=== PATIENT | male | born 1995 | race Caucasian/White ===

== ENCOUNTER 2020-06-25 13:29 | Emergency (ER) | payer OTHER ==
--- NOTE | 2020-06-25 15:09 | ED ---
Psych HPI - General Source: patient Mode of arrival: ambulatory - History of Present Illness MD Complaint: suicidal ideation, feels depressed <Jorge Pearl - Last Filed: 06/25/20 20:22> <Tez Talamantes - Last Filed: 06/26/20 02:35> - General Chief Complaint: Psychiatric Symptoms Stated Complaint: mental health Time Seen by Provider: 06/25/20 13:53 - History of Present Illness Initial Comments: 24 -year-old male history depression and complains of feeling depressed suicidal he did cut his left forearm several times will last couple days he has sausage shooting himself. He states he depressed because of job loss he has been using methamphetamine and other substances. No prior admission at this facility. No other complaints or modifying factors (Jorge Pearl) - Related Data Home Medications Medication Instructions Recorded Confirmed No Known Home Medications 06/25/20 06/25/20 Allergies Allergy/AdvReac Type Severity Reaction Status Date / Time No Known Allergies Allergy Verified 06/25/20 15:07 Review of Systems ROS Other: All systems not noted in ROS Statement are negative. <Jorge Pearl - Last Filed: 06/25/20 20:22> ROS Other: All systems not noted in ROS Statement are negative. <Tez Talamantes - Last Filed: 06/26/20 02:35> ROS Statement: Those systems with pertinent positive or pertinent negative responses have been documented in the HPI. Past Medical History Past Medical History: No Reported History History of Any Multi-Drug Resistant Organisms: None Reported Past Surgical History: Orthopedic Surgery Past Psychological History: Anxiety Smoking Status: Current every day smoker Past Alcohol Use History: Occasional Past Drug Use History: Marijuana, Methamphetamine <Jorge Pearl - Last Filed: 06/25/20 20:22> General Exam Limitations: no limitations General appearance: alert, anxious Head exam: Present: atraumatic, normocephalic, normal inspection Eye exam: Present: normal appearance, PERRL, EOMI. Absent: scleral icterus, conjunctival injection, periorbital swelling ENT exam: Present: normal exam, mucous membranes moist Neck exam: Present: normal inspection. Absent: tenderness, meningismus, lymphadenopathy Respiratory exam: Present: normal lung sounds bilaterally. Absent: respiratory distress, wheezes, rales, rhonchi, stridor Cardiovascular Exam: Present: regular rate, normal rhythm, normal heart sounds. Absent: systolic murmur, diastolic murmur, rubs, gallop, clicks GI/Abdominal exam: Present: soft, normal bowel sounds. Absent: distended, tenderness, guarding, rebound, rigid Extremities exam: Present: full ROM, normal capillary refill, other (Multiple superficial transverse abrasions over the volar left forearm no active bleeding no suture repair indicated no foreign body seen.). Absent: tenderness, pedal edema, joint swelling, calf tenderness Back exam: Present: normal inspection Neurological exam: Present: alert, oriented X3, CN II-XII intact Psychiatric exam: Present: normal affect, normal mood Skin exam: Present: warm, dry, intact, normal color. Absent: rash <Jorge Pearl - Last Filed: 06/25/20 20:22> - General Exam Comments Initial Comments: Is a well-developed nourished awake alert oriented 3 male (Jorge Pearl) Course <Jorge Pearl - Last Filed: 06/25/20 20:22> <Tez Talamantes - Last Filed: 06/26/20 02:35> Vital Signs 06/25/20 06/26/20 13:31 00:39 Temperature 98.1 F 98.1 F Pulse Rate 121 H 85 Respiratory 22 15 Rate Blood Pressure 121/62 111/57 O2 Sat by Pulse 99 97 Oximetry - Reevaluation(s) Reevaluation #1: 06/25/20 20:22 The patient is resting comfortably and pending EPS evaluation. (Jorge Pearl) Reevaluation #2: 06/26/20 02:34 Patient clear for psychiatric evaluation (Tez Talamantes) Reevaluation #3: 06/26/20 02:34 Patient remains suicidal here in the ER seen and evaluated (Tez Talamantes) Medical Decision Making <Tez Talamantes - Last Filed: 06/26/20 02:35> - Medical Decision Making 82 male seen and evaluated for psychiatric certification. Patient be transferred for inpatient psychiatric evaluation and treatment (Tez Talamantes) - Lab Data Lab Results 06/25/20 06/25/20 Range/Units 21:23 21:23 Urine Color Yellow Urine Appearance Turbid (Clear) Urine pH 6.5 (5.0-8.0) Ur Specific [place] 1.031 (1.001-1.035) Urine Protein 1+ H (Negative) Urine Glucose (UA) Negative (Negative) Urine Ketones Negative (Negative) Urine Blood Negative (Negative) Urine Nitrite Negative (Negative) Urine Bilirubin Negative (Negative) Urine Urobilinogen <2.0 (<2.0) mg/dL Ur Leukocyte Esterase Trace H (Negative) Urine WBC 1 (0-5) /hpf Amorphous Sediment Occasional H (None) /hpf Urine Bacteria Rare H (None) /hpf Urine Mucus Many H (None) /hpf Urine Opiates Screen Detected H (NotDetected) Ur Oxycodone Screen Not Detected (NotDetected) Urine Methadone Screen Not Detected (NotDetected) Ur Propoxyphene Screen Not Detected (NotDetected) Ur Barbiturates Screen Not Detected (NotDetected) U Tricyclic Antidepress Not Detected (NotDetected) Ur Phencyclidine Scrn Not Detected (NotDetected) Ur Amphetamines Screen Detected H (NotDetected) U Methamphetamines Scrn Detected H (NotDetected) U Benzodiazepines Scrn Detected H (NotDetected) Urine Cocaine Screen Not Detected (NotDetected) U Marijuana (THC) Screen Detected H (NotDetected) Disposition <Jorge Pearl - Last Filed: 06/25/20 20:22> Is patient prescribed a controlled substance at d/c from ED?: No <Tez Talamantes - Last Filed: 06/26/20 02:35> Clinical Impression: Depression, Suicidal ideation Disposition: TRANSFER TO PSYCH HOSP/UNIT Condition: Fair Referrals: Yomi Hannah MD [Primary Care Provider] - 1-2 days
[2020-06-25] MEDS ORDERED: NICOTINE 21MG/24HR PATCH TRANSDERM STA (19:28)
[2020-06-25 21:46] LABS: Amorphous Sediment,Urine Occasional /hpf; Appearance,Urine Turbid (Clear); Bacteria,Urine Rare /hpf; Bilirubin,Urine Negative (Negative); Blood,Urine Negative (Negative); Color,Urine Yellow; Glucose,Urine (UA) Negative (Negative); Ketones,Urine Negative (Negative); Leukocyte Esterase,Urine Trace (Negative); Mucus,Urine Many /hpf; Nitrite,Urine Negative (Negative); PH, Urine 6.5 (5.0-8.0); Protein,Urine 1+ (Negative); Specific Gravity,Urine 1.031 (1.001-1.035); Urobilinogen,Urine <2.0 mg/dL (<2.0); WBC,Urine 1 /hpf (0-5)
[2020-06-25 21:48] LABS: Amphetamine Screen,Urine Detected (NotDetected); Benzodiazepines Screen,Urine Detected (NotDetected); Cocaine Screen,Urine Not Detected (NotDetected); Opiate Screen,Urine Detected (NotDetected); Phencyclidine Screen,Urine Not Detected (NotDetected)
[2020-06-25 21:49] LABS: Barbiturate Screen,Urine Not Detected (NotDetected); Methadone Screen, Urine Not Detected (NotDetected); Oxycodone Screen, Urine Not Detected (NotDetected); Tricyclic Antidepressant,Urine Not Detected (NotDetected); Urn Cannabinoid Scrn Detected (NotDetected)
[2020-06-26 02:32] LABS: Basophils % (A) 0 %; Eosinophils # (A) 0.2 k/uL (0-0.7); Eosinophils % (A) 3 %; HCT 46.8 % (39.0-53.0); HGB 15.1 gm/dL (13.0-17.5); Lymphocytes # (A) 2.2 k/uL (1.0-4.8); Lymphocytes % (A) 27 %; MCH 29.8 pg (25.0-35.0); MCHC 32.2 g/dL (31.0-37.0); MCV 92.8 fL (80.0-100.0); Mean Platelet Volume 7.2; Monocytes # (A) 0.6 k/uL (0-1.0); Monocytes % (A) 7 %; Neutrophils # (A) 4.8 k/uL (1.3-7.7); Neutrophils % (A) 60 %; Platelet Count 234 k/uL (150-450); RBC 5.05 m/uL (4.30-5.90); RDW 12.8 % (11.5-15.5)
[2020-06-26 03:00] LABS: ALT 15 U/L (4-49); AST 23 U/L (17-59); African American GFR (CKD) >90 (>60 ml/min/1.73 sqM); Albumin 4.2 g/dL (3.5-5.0); Alkaline Phosphatase 52 U/L (38-126); Anion Gap 5 mmol/L; Blood Urea Nitrogen 18 mg/dL (9-20); Calcium 9.5 mg/dL (8.4-10.2); Carbon Dioxide 27 mmol/L (22-30); Chloride 106 mmol/L (98-107); Glucose 91 mg/dL (74-99); Non-African American GFR(CKD) >90 (>60 ml/min/1.73 sqM); Potassium 4.2 mmol/L (3.5-5.1); Sodium 138 mmol/L (137-145); Total Bilirubin 0.7 mg/dL (0.2-1.3); Total Protein 6.8 g/dL (6.3-8.2)
[2020-06-26 07:00] VITALS: BP 129/60; PULSE 77; RESP 18; TEMP 98
== END 2020-06-26 11:58 ==
LOC: EC 13:29
DX: Z03.818 Encounter for observation for suspected exposure to other biological agents ruled out (principal); R45.851 Suicidal ideations; F32.9 Major depressive disorder, single episode, unspecified; S50.812A Abrasion of left forearm, initial encounter; F17.200 Nicotine dependence, unspecified, uncomplicated; X78.9XXA Intentional self-harm by unspecified sharp object, initial encounter
CPT/HCPCS: 99285; 82075; 80306; S4990; 36415; 80053; 81001; 85025; 87491; 87591; 87635

== ENCOUNTER 2020-12-26 20:35 | Emergency (ER) | payer OTHER ==
[2020-12-26] MEDS ORDERED: HYDROmorphone 1 MG/ML 1 ML SYRINGE IM STA (20:55)
[2020-12-26] MEDS ORDERED: ORPHENADRINE 30 MG/ML 2 ML VIAL IM STA (20:57)
[2020-12-26 20:58] VITALS: RESP 18
--- NOTE | 2020-12-26 21:00 | ED ---
Fall HPI - General Chief Complaint: Fall Stated Complaint: Fall,Back injury Time Seen by Provider: 12/26/20 20:45 Source: patient Mode of arrival: ambulatory Limitations: no limitations - History of Present Illness Initial Comments: 25-year-old well-appearing white male, alert and oriented 4, presents to the emergency room with the complaint of a fall off of a ladder approximately 10 feet yesterday at noon. Patient states that he was cutting a tree branch and the treatment bandage broke causing the ladder to fall backward. He states that he fell onto his back. Significant other bedside states that she observed the fall he did not lose consciousness or hit his head. Patient was able to ambulate after the fall without any difficulty. But states that today upon awakening he's had increasingly worsening pain in his back and headache. He denies any weakness, incontinence or any other injuries. MD Complaint: fall -: days(s) (1) Fall From: from height (distance) (10ft) When Fall Occurred: [address] Fall Occurred: home Loss of Consciousness: none Prolonged Down Time?: no Symptoms Prior to Fall: none Location: back Severity scale (1-10): 9 Quality: aching Associated Symptoms: denies - Related Data Previous Rx's Medication Instructions Recorded Ibuprofen [Motrin] 800 mg PO Q8H PRN #20 tab 12/26/20 Allergies Allergy/AdvReac Type Severity Reaction Status Date / Time No Known Allergies Allergy Verified 12/26/20 20:59 Review of Systems ROS Statement: Those systems with pertinent positive or pertinent negative responses have been documented in the HPI. ROS Other: All systems not noted in ROS Statement are negative. Past Medical History Past Medical History: No Reported History History of Any Multi-Drug Resistant Organisms: None Reported Past Surgical History: Orthopedic Surgery Past Psychological History: Anxiety Smoking Status: Current every day smoker Past Alcohol Use History: Occasional Past Drug Use History: Marijuana, Methamphetamine General Exam General appearance: alert, in no apparent distress Head exam: Present: atraumatic, normocephalic, normal inspection Eye exam: Present: normal appearance, PERRL, EOMI. Absent: scleral icterus, conjunctival injection, periorbital swelling Pupils: Present: normal accommodation ENT exam: Present: normal exam, normal oropharynx, mucous membranes moist Neck exam: Present: normal inspection. Absent: tenderness, meningismus, lymphadenopathy Respiratory exam: Present: normal lung sounds bilaterally. Absent: respiratory distress, wheezes, rales, rhonchi, stridor Cardiovascular Exam: Present: normal rhythm, tachycardia, normal heart sounds. Absent: systolic murmur, diastolic murmur, rubs, gallop, clicks GI/Abdominal exam: Present: soft, normal bowel sounds. Absent: distended, tenderness, guarding, rebound, rigid Extremities exam: Present: normal inspection, full ROM, normal capillary refill. Absent: tenderness, pedal edema, joint swelling, calf tenderness Back exam: Present: normal inspection, full ROM, tenderness, paraspinal tenderness (Thoracic and lumbar), other (Sunburn first-degree). Absent: CVA tenderness (R), CVA tenderness (L), muscle spasm, rash noted Expanded Back exam: Negative Straight Leg Raising: Right, Left Neurological exam: Present: alert, oriented X3, CN II-XII intact Expanded Patient oriented to: Present: person, place, time Speech: Present: fluid speech Cranial nerves: EOM's Intact: Normal, Gag Reflex: Normal, Tongue Deviation: Normal Cerebellar function: Finger to Nose: Normal, Heel to [place]: Normal Motor strength exam: RUE: 5, LUE: 5, RLE: 5, LLE: 5 Eye Response: (4) open spontaneously Motor Response: (6) obeys commands Verbal Response: (5) oriented [place] Total: 15 Psychiatric exam: Present: normal affect, normal mood Skin exam: Present: warm, dry, intact, normal color. Absent: rash, cyanosis, diaphoretic, erythema, urticaria, petechiae, pallor, mottled, abrasion Course Vital Signs 12/26/20 12/26/20 20:35 20:57 Temperature 98.3 F Pulse Rate 115 H 112 H Respiratory 16 18 Rate Blood Pressure 124/66 123/77 O2 Sat by Pulse 98 97 Oximetry Medical Decision Making - Medical Decision Making UA is negative for blood or infectious process. CT of the brain shows no acute pain or bleeding, mass or skull fracture. XR of the LS-spine shows slight narrowing of L4-L5 disc but negative for fractures. X-ray of thoracic spine shows no compression fractures. No sign of thoracic paraspinal mass. Patient states that his pain is down to a 3. He is directed to follow up with his primary care doctor next week, increase his fluid intake and take Motrin every 8 hours for pain. Patient was also given a starter pack of Tylenol #3's to use for severe pain. Patient is able to ambulate with a steady gait and is well- appearing. Vital signs have been stable.. He denies any abdominal pain, difficulty breathing, cough, nausea or vomiting. Case was discussed with Dr. Griffith was agreeable to this plan of care. - Lab Data Lab Results 12/26/20 Range/Units 21:08 Urine Color Yellow Urine Appearance Cloudy (Clear) Urine pH 6.0 (5.0-8.0) Ur Specific [place] 1.027 (1.001-1.035) Urine Protein Trace H (Negative) Urine Glucose (UA) Negative (Negative) Urine Ketones Negative (Negative) Urine Blood Negative (Negative) Urine Nitrite Negative (Negative) Urine Bilirubin Negative (Negative) Urine Urobilinogen <2.0 (<2.0) mg/dL Ur Leukocyte Esterase Negative (Negative) Urine RBC 2 (0-5) /hpf Urine WBC 3 (0-5) /hpf Ur Squamous Epith Cells 1 (0-4) /hpf Amorphous Sediment Occasional H (None) /hpf Urine Bacteria Rare H (None) /hpf Urine Mucus Moderate H (None) /hpf Disposition Clinical Impression: Fall, Back pain Disposition: HOME SELF-CARE Condition: Good Additional Instructions: Return to the emergency room with worsening pain, cough, or fever. Take Motrin every 6-8 hours for pain and increase your fluid intake. Follow-up with your primary care doctor in 1 week Prescriptions: Ibuprofen [Motrin] 800 mg PO Q8H PRN #20 tab PRN Reason: Pain Is patient prescribed a controlled substance at d/c from ED?: No Referrals: Yomi Hannah MD [Primary Care Provider] - 1-2 days Time of Disposition: 22:36
[2020-12-26 21:30] LABS: Amorphous Sediment,Urine Occasional /hpf; Appearance,Urine Cloudy (Clear); Bacteria,Urine Rare /hpf; Bilirubin,Urine Negative (Negative); Blood,Urine Negative (Negative); Color,Urine Yellow; Glucose,Urine (UA) Negative (Negative); Ketones,Urine Negative (Negative); Leukocyte Esterase,Urine Negative (Negative); Mucus,Urine Moderate /hpf; Nitrite,Urine Negative (Negative); Protein,Urine Trace (Negative); RBC,Urine 2 /hpf (0-5); Specific Gravity,Urine 1.027 (1.001-1.035); Squamous Epithelial Cell,Urine 1 /hpf (0-4); Urobilinogen,Urine <2.0 mg/dL (<2.0); WBC,Urine 3 /hpf (0-5)
--- NOTE | 2020-12-26 22:04 | XR ---
EXAMINATION TYPE: XR lumbosacral spine min 4V DATE OF EXAM: 12/26/2020 COMPARISON: NONE HISTORY: Back pain TECHNIQUE: 5 views FINDINGS: Lumbar vertebra have normal alignment. Posterior elements are intact. There is no compressi on fracture. There is slight narrowing of L4-5 disc. The sacroiliac joints are intact. IMPRESSION: Negative lumbar spine exam. No fracture seen.
--- NOTE | 2020-12-26 22:05 | XR ---
EXAMINATION TYPE: XR thoracic spine complete DATE OF EXAM: 12/26/2020 COMPARISON: NONE HISTORY: Back pain TECHNIQUE: 3 views FINDINGS: Thoracic vertebra have normal alignment. There is no compression fracture. Posterior elemen ts are intact. There is no sign of thoracic paraspinal mass. IMPRESSION: Negative thoracic spine exam. No fracture.
--- NOTE | 2020-12-26 22:11 | CT ---
EXAMINATION TYPE: CT brain wo con DATE OF EXAM: 12/26/2020 COMPARISON: None HISTORY: Fall. CT DLP: 1099.4 mGycm Automated exposure control for dose reduction was used. The ventricles and sulci appear normal. There is no mass effect nor midline shift. There is no sign o f intracranial hemorrhage. The calvarium is intact. There is normal aeration of the mastoid sinuses. Skull base is intact. There is 13 mm mucous retention cyst floor of the left maxillary sinus. IMPRESSION: Normal unenhanced head CT scan.
[2020-12-26] MEDS ORDERED: ACET/COD 300 MG/30 MG STARTER PACK 6 TAB BTL PO STA (22:31)
[2020-12-26 22:42] VITALS: BP 128/85; PULSE 77; TEMP 97.8
== END 2020-12-26 22:43 | disposition home or self-care (01) ==
LOC: EC 20:35
DX: M54.9 Dorsalgia, unspecified (principal); R51.9 Headache, unspecified; F17.200 Nicotine dependence, unspecified, uncomplicated; W11.XXXA Fall on and from ladder, initial encounter; Y93.H2 Activity, gardening and landscaping; Y92.009 Unspecified place in unspecified non-institutional (private) residence as the place of occurrence of the external cause
CPT/HCPCS: 81001; 72072; 72110; 70450; 99284; 96372; J2360; J1170

== ENCOUNTER 2021-01-23 17:10 | Emergency (ER) | payer OTHER ==
[2021-01-23 17:32] VITALS: PULSE 77; RESP 18; TEMP 99.1
--- NOTE | 2021-01-23 18:30 | XR ---
EXAMINATION TYPE: XR hand complete RT DATE OF EXAM: 01/23/2021 COMPARISON: NONE HISTORY: Pain. Injury. TECHNIQUE: 3 views FINDINGS: There is a nondisplaced transverse fracture across the proximal shaft of the fifth metacarp al. There is evidence of an old healed fracture of the fourth metacarpal. The fingers appear intact. Carpal bones are intact. IMPRESSION: Acute nondisplaced fifth metacarpal shaft fracture.
[2021-01-23] MEDS ORDERED: KETOROLAC 15 MG/ML 1 ML VIAL IM STA (18:40)
[2021-01-23] MEDS ORDERED: ACET/COD 300 MG/30 MG STARTER PACK 6 TAB BTL PO STA (18:46)
--- NOTE | 2021-01-23 19:00 | ED ---
Upper Extremity HPI - General Chief Complaint: Extremity Injury, Upper Stated Complaint: R hand injury Time Seen by Provider: 01/23/21 18:20 Source: patient Mode of arrival: ambulatory Limitations: no limitations - History of Present Illness Initial Comments: 25-year-old male presents emergency Department with a chief complaint right hand pain. Patient reports he punched a wall earlier today and not his parents and pain in his right fifth metacarpal bone. He reports swelling and mild ecchymosis to the region. Reports the pain is sharp in nature and is requesting analgesia, nonnarcotic. Patient denies any paresthesias and is still able to move the fingers without any difficulties. Denies taking medications with the symptoms. [facility] by [facility] personnel. - Related Data Previous Rx's Medication Instructions Recorded Ibuprofen [Motrin] 800 mg PO Q8H PRN #20 tab 12/26/20 Allergies Allergy/AdvReac Type Severity Reaction Status Date / Time No Known Allergies Allergy Verified 01/23/21 17:31 Review of Systems ROS Statement: Those systems with pertinent positive or pertinent negative responses have been documented in the HPI. ROS Other: All systems not noted in ROS Statement are negative. Past Medical History Past Medical History: No Reported History History of Any Multi-Drug Resistant Organisms: None Reported Past Surgical History: Orthopedic Surgery Past Psychological History: Anxiety Smoking Status: Current every day smoker Past Alcohol Use History: Occasional Past Drug Use History: Marijuana, Methamphetamine General Exam Limitations: no limitations General appearance: alert, in no apparent distress Head exam: Present: atraumatic, normocephalic, normal inspection Eye exam: Present: normal appearance, PERRL, EOMI Pupils: Present: normal accommodation ENT exam: Present: normal exam, normal oropharynx, mucous membranes moist Neck exam: Present: normal inspection, full ROM. Absent: tenderness Respiratory exam: Present: normal lung sounds bilaterally. Absent: respiratory distress Cardiovascular Exam: Present: regular rate, normal rhythm, normal heart sounds. Absent: systolic murmur Extremities exam: Present: full ROM, tenderness (Tenderness at the right fifth metacarpal), normal capillary refill, joint swelling (Right hand). Absent: normal inspection (Swelling and ecchymosis on the medial aspect of the right hand), pedal edema, calf tenderness Back exam: Present: normal inspection, full ROM. Absent: tenderness Neurological exam: Present: alert, oriented X3 Psychiatric exam: Present: normal affect, normal mood Skin exam: Present: warm, dry, intact, normal color Course Vital Signs 01/23/21 17:28 Temperature 99.1 F Pulse Rate 77 Respiratory 18 Rate O2 Sat by Pulse 98 Oximetry Medical Decision Making - Medical Decision Making 25-year-old male presents emergency Department with a chief complaint right hand pain. On physical examination, he is neurovascularly intact. X-rays reveal a right fifth metacarpal fracture. Ulnar gutter applied. Advised patient to follow-up with family services specialist. Will be discharged with Tylenol 3. Disposition Clinical Impression: Boxers fracture Disposition: HOME SELF-CARE Condition: Stable Instructions (If sedation given, give patient instructions): Boxer Fracture (ED) Additional Instructions: Follow-up with family services specialist. Alternate between Tylenol or Motrin for pain control. Return to emergency department if symptoms worsen. Is patient prescribed a controlled substance at d/c from ED?: No Referrals: Yomi Hannah MD [Primary Care Provider] - 1-2 days Madan Rosario DO [Doctor of Osteopathic Medicine] - 1-2 days Time of Disposition: 18:59
== END 2021-01-23 19:26 | disposition home or self-care (01) ==
LOC: EC 17:10
DX: S62.357A Nondisplaced fracture of shaft of fifth metacarpal bone, left hand, initial encounter for closed fracture (principal); F17.200 Nicotine dependence, unspecified, uncomplicated; W22.09XA Striking against other stationary object, initial encounter
CPT/HCPCS: 29125; 99283; 73130; 96372; J1885